=== PATIENT | male | born 1985 | race African-American/Black ===

== ENCOUNTER 2016-05-09 09:38 | Day surgery (SDC) | payer OTHER ==
[~2016-05-09] VITALS: Ht 185.4 cm; Wt 130.5 kg
[~2016-05-09 09:38] MED LIST: HYDROCODONE-APA1 TAB PO; INVOKANA300 MG PO; MEDROL DOSE PACK4 MG PO; TENORMIN25 MG PO; VICTOZA0.6 MG/0.1 SQ; XANAX1 MG PO
[2016-05-09 10:34] VITALS: BP 133/92; Ht 185.4 cm; Wt 130.5 kg
[2016-05-09 10:36] LABS: HEMATOCRIT 44.2 % (42.0-54.0); HEMOGLOBIN 14.5 g/dL (13.5-17.5); MCH 27.4 pg (26.0-34.0); MCHC 32.8 g/dL (31.0-37.0); MCV 83.4 fL (80.0-100.0); MEAN PLATELET VOLUME 9.6 fL (7.4-10.4); RBC 5.3 10x6/uL (4.20-6.10); RDW 13.6 % (11.5-14.5); WBC 5.1 10x3/uL (4.8-10.8)
[2016-05-09 10:49] LABS: CALC OSMOLALITY 277 mosm/kg (275-300); CARBON DIOXIDE 27.4 mmol/L (21.0-32.0); CHLORIDE - SERUM 101 mmol/L (98-107); CREATININE - SERUM 0.8 mg/dL (0.6-1.3); GLUCOSE 167 mg/dL (74-106); POTASSIUM - SERUM 4.3 mmol/L (3.5-5.1); SODIUM 138 mmol/L (136-145); UREA NITROGEN 7 mg/dL (7-18); eGFR NON AFRICAN AMERICAN > 90 mL/min (90-120)
--- NOTE | 2016-05-09 14:37 | NUR ---
1424 DR. LEE LOZANO, GIVES FAMILY REPORT.
--- NOTE | 2016-06-21 10:17 | OP ---
PATIENT NAME: BERNARD LONGORIA MEDICAL RECORD: [id number] :86 LOCATION:D.OPS ADMISSION DATE: SURGEON: OZZY HOWARD MD DATE OF OPERATION: 05/09/2016 PREOPERATIVE DIAGNOSES: 1. Hematochezia. 2. Right lower quadrant abdominal pain. POSTOPERATIVE DIAGNOSES: 1. Hematochezia. 2. Right lower quadrant abdominal pain. 3. Probable bleeding from internal hemorrhoids. PROCEDURE: Total colonoscopy to the cecum. SURGEON: Ozzy Howard MD SEARCH OPTIMIZATION ANALYST: None. BLOOD LOSS: Minimal. ANESTHESIA: IV sedation. COMPLICATIONS: None. Reason for the anesthesia staff being present during the procedure includes anxiety regarding the procedure. ENDOSCOPIC COURSE: The patient was conveyed to endoscopy suite electively on 05/09/2016. IV sedation was induced by the anesthesia staff. The patient was placed in the Robbins position. A digital rectal examination was performed. The prostate was normal. A colonoscope was inserted to the cecum. The prep was marginal. I slowly withdrew the endoscope. I irrigated and aspirated extensively. I used a combination of direct imaging as well as narrow band imaging. I noted no evidence of colitis. No proctitis. No source of bleeding. No polyps. No masses. A retroflexed view was obtained in the rectum. I carefully examined the internal hemorrhoids, which were small. I noted no recent evidence of bleeding. No abrasions on the hemorrhoids. I then unretroflexed the scope and removed it under direct vision. As I told the patient's , I do not have a reason for his right lower quadrant abdominal pain. She states that suppositories have not worked in the past. I would not recommend an operation or banding of his internal hemorrhoids as he has a certain level of anxiety regarding the hematochezia and I think that any procedure on his internal hemorrhoids would temporarily cause an increase in bleeding and I would like to precipitate a number of visits to the Emergency Room. I have offered them a variety of anal suppositories which may or may not decrease the bleeding that he is having. They declined at this time. I will see him on a p.r.n. basis. TRANSINT:[id number] Voice Confirmation ID: [id number] DOCUMENT ID: [id number] OPERATIVE REPORT [id number] BERNARD LONGORIA OZZY CARRANZA MD at 1017 CC: KWESI WATERS MD [id number] DICTATION DATE: 05/09/16 1439 PROJECT ENG: 05/09/16 1454 [facility] 05/09/16 [id number] [place] [address]
--- NOTE | 2016-06-21 10:17 | HP ---
PATIENT: BERNARD LONGORIA MEDICAL RECORD: [id number] ACCOUNT: [id number] LOCATION:OMAR : 86 ADMISSION DATE: 05/09/16 HISTORY AND PHYSICAL EXAMINATION CHIEF COMPLAINT: Abdominal pain in right lower quadrant as well as hematochezia. HISTORY OF PRESENT ILLNESS: The patient has undergone a number of endoscopic procedures. He has undergone a hemorrhoid procedure, cholecystectomy as well as sinus surgery. He has fatty liver disease, non-insulin dependent diabetes mellitus, gastroesophageal reflux on no medicines, and hypertension. SOCIAL HISTORY: Nonsmoker. HOME MEDICATIONS: Xanax and hydrocodone. ALLERGIES: MORPHINE. REVIEW OF SYSTEMS: Negative for CVA or seizures. Negative for renal disease or thyroid disease. PHYSICAL EXAMINATION: GENERAL: The patient does not appear acutely ill. He does not appear chronically ill. VITAL SIGNS: Reviewed. HEAD: External ears appear normal. EYES: Extraocular movements are intact. NECK: Trachea is midline. CHEST: No intercostal retractions. PULMONARY: Nonlabored, no stridor. ABDOMEN: Tenderness in the right lower quadrant with guarding. No peritonitis to percussion. IMPRESSION: 1. Intermittent recurrent hematochezia. 2. Right lower quadrant abdominal pain. PLAN: Colonoscopy. TRANSINT:[id number] Voice Confirmation ID: [id number] DOCUMENT ID: [id number] CARRIE HOWARD MD at 1017 CC: [id number] DICTATION DATE: 05/09/16 1355 SENIOR CONSUMER INSIGHTS CONSULTANT: 05/09/16 1405 [facility] 05/09/16 [place] [address]
== END 2016-05-09 15:25 | disposition home or self-care (01) ==
LOC: D.OPS 09:38
PROVIDERS: Anesthesiology
DX: K92.1 Melena (principal); K64.8 Other hemorrhoids; K76.0 Fatty (change of) liver, not elsewhere classified; E11.9 Type 2 diabetes mellitus without complications; J21.9 Acute bronchiolitis, unspecified; I10 Essential (primary) hypertension; Z79.891 Long term (current) use of opiate analgesic; Z79.899 Other long term (current) drug therapy; Z88.5 Allergy status to narcotic agent

== ENCOUNTER 2016-08-20 11:33 | Emergency (ER) | payer SELFPAY ==
[2016-05-09 10:34] VITALS: BMI 37.9
[2016-08-20 12:31] LABS: BASOPHILS 0.8 % (0-2); EOSINOPHILS 2.9 % (0-7); HEMATOCRIT 43.6 % (42.0-54.0); HEMOGLOBIN 14.2 g/dL (13.5-17.5); LYMPHOCYTES 40.7 % (15-50); MCH 26.2 pg (26.0-34.0); MCHC 32.6 g/dL (31.0-37.0); MCV 80.4 fL (80.0-100.0); MEAN PLATELET VOLUME 9.8 fL (7.4-10.4); NEUTROPHILS 42.6 % (40-80); PLATELET COUNT 313 10x3/uL (130-400); RBC 5.42 10x6/uL (4.20-6.10); RDW 15.6 % (11.5-14.5); WBC 6.3 10x3/uL (4.8-10.8)
[2016-08-20 12:53] LABS: ALBUMIN 3.7 g/dL (3.4-5.0); ALKALINE PHOSPHATASE 75 U/L (46-116); ALT (SGPT) 107 U/L (10-68); CALC OSMOLALITY 280 mosm/kg (275-300); CALCIUM 8.5 mg/dL (8.5-10.1); CHLORIDE - SERUM 103 mmol/L (98-107); CREATININE - SERUM 0.8 mg/dL (0.6-1.3); GLUCOSE 176 mg/dL (74-106); POTASSIUM - SERUM 4.1 mmol/L (3.5-5.1); PROTEIN - SERUM 7.4 g/dL (6.4-8.2); SODIUM 139 mmol/L (136-145); UREA NITROGEN 11 mg/dL (7-18); eGFR NON AFRICAN AMERICAN > 90 mL/min (90-120)
[2016-08-20 13:09] LABS: CHOL - HDL RATIO 2.9 ratio (2.3-4.9); CHOLESTEROL, TOTAL 93 mg/dL (0-200); CKMB 0.9 U/L (0.0-3.6); CREATINE KINASE 191 UL (21-232); HDL CHOLESTEROL 32 mg/dL (32-96); LDL CHOLESTEROL 13 mg/dL (0-100); LDL-HDL RATIO 0.4 ratio (1.5-3.5); TRIGLYCERIDE 240 mg/dL (30-200)
[2016-08-20 13:10] LABS: TROPONIN-I < 0.017 ng/mL (0.000-0.060)
== END 2016-08-20 13:44 | disposition home or self-care (01) ==
LOC: D.ER 11:33
PROVIDERS: Emergency Medicine
DX: R07.9 Chest pain, unspecified (principal); R51 Headache; E11.9 Type 2 diabetes mellitus without complications; Z79.4 Long term (current) use of insulin; I10 Essential (primary) hypertension; K58.9 Irritable bowel syndrome, unspecified; F17.200 Nicotine dependence, unspecified, uncomplicated

== ENCOUNTER 2016-12-03 09:05 | Emergency (ER) | payer SELFPAY ==
[2016-05-09 10:34] VITALS: BMI 37.9
[2016-12-03 09:38] LABS: BASOPHILS 0.5 % (0-2); EOSINOPHILS 1.8 % (0-7); HEMATOCRIT 43.8 % (42.0-54.0); HEMOGLOBIN 14.5 g/dL (13.5-17.5); IMMATURE GRANULOCYTES 0.2 % (0-5); LYMPHOCYTES 44.8 % (15-50); MCH 26.2 pg (26.0-34.0); MCHC 33.1 g/dL (31.0-37.0); MCV 79.2 fL (80.0-100.0); MEAN PLATELET VOLUME 10.3 fL (7.4-10.4); MONOCYTES 9.6 % (2-11); NEUTROPHILS 43.1 % (40-80); PLATELET COUNT 255 10x3/uL (130-400); RBC 5.53 10x6/uL (4.20-6.10); RDW 15.2 % (11.5-14.5); WBC 6.1 10x3/uL (4.8-10.8)
[2016-12-03 09:47] LABS: APTT 25.3 SECONDS (22.8-39.4); INR 1.04 (0.85-1.17); PROTIME 13.5 SECONDS (11.6-15.0)
[2016-12-03 09:51] LABS: ALBUMIN 4.2 g/dL (3.4-5.0); ALKALINE PHOSPHATASE 70 U/L (46-116); ALT (SGPT) 131 U/L (10-68); BILIRUBIN - TOTAL 0.46 mg/dL (0.2-1.3); CALC OSMOLALITY 278 mosm/kg (275-300); CALCIUM 8.8 mg/dL (8.5-10.1); CARBON DIOXIDE 28.1 mmol/L (21.0-32.0); CHLORIDE - SERUM 103 mmol/L (98-107); CREATININE - SERUM 0.9 mg/dL (0.6-1.3); GLUCOSE 181 mg/dL (74-106); POTASSIUM - SERUM 4.4 mmol/L (3.5-5.1); SODIUM 137 mmol/L (136-145); UREA NITROGEN 12 mg/dL (7-18); eGFR NON AFRICAN AMERICAN > 90 mL/min (90-120)
[2016-12-03 09:55] LABS: CREATINE KINASE 170 UL (21-232); MAGNESIUM - SERUM 2.2 mg/dL (1.8-2.4); TROPONIN-I < 0.017 ng/mL (0.000-0.060)
== END 2016-12-03 11:12 | disposition home or self-care (01) ==
LOC: D.ER 09:05
PROVIDERS: Emergency Medicine
DX: I10 Essential (primary) hypertension (principal); E11.9 Type 2 diabetes mellitus without complications; R07.9 Chest pain, unspecified; R51 Headache; R00.2 Palpitations

== ENCOUNTER 2017-06-07 11:56 | Emergency (ER) | payer BC ==
[2016-05-09 10:34] VITALS: BMI 37.9
[2017-06-07 13:03] LABS: BASOPHILS 0.4 % (0-2); EOSINOPHILS 1.8 % (0-7); HEMATOCRIT 45.9 % (42.0-54.0); IMMATURE GRANULOCYTES 0.2 % (0-5); LYMPHOCYTES 44.1 % (15-50); MCH 26.6 pg (26.0-34.0); MCHC 32.7 g/dL (31.0-37.0); MCV 81.5 fL (80.0-100.0); MEAN PLATELET VOLUME 9.6 fL (7.4-10.4); MONOCYTES 11.3 % (2-11); NEUTROPHILS 42.2 % (40-80); PLATELET COUNT 266 10x3/uL (130-400); RBC 5.63 10x6/uL (4.20-6.10); RDW 15.3 % (11.5-14.5); WBC 5.1 10x3/uL (4.8-10.8)
[2017-06-07 13:15] LABS: INR 1.03 (0.85-1.17); PROTIME 13.1 SECONDS (11.6-15.0)
[2017-06-07 13:17] LABS: ALKALINE PHOSPHATASE 63 U/L (46-116); ALT (SGPT) 127 U/L (10-68); BILIRUBIN - TOTAL 0.71 mg/dL (0.2-1.3); CALC OSMOLALITY 275 mosm/kg (275-300); CALCIUM 8.7 mg/dL (8.5-10.1); CARBON DIOXIDE 24.6 mmol/L (21.0-32.0); CHLORIDE - SERUM 104 mmol/L (98-107); CREATININE - SERUM 0.8 mg/dL (0.6-1.3); D-DIMER-QUANTITATIVE < 0.27 ug/mLFEU (0.20-0.54); GLUCOSE 155 mg/dL (74-106); POTASSIUM - SERUM 4.4 mmol/L (3.5-5.1); PROTEIN - SERUM 7.5 g/dL (6.4-8.2); SODIUM 137 mmol/L (136-145); UREA NITROGEN 9 mg/dL (7-18); eGFR NON AFRICAN AMERICAN > 90 mL/min (90-120)
[2017-06-07 13:18] LABS: CHOL - HDL RATIO 2.5 ratio (2.3-4.9); CHOLESTEROL, TOTAL 93 mg/dL (0-200); CKMB 1.1 U/L (0.0-3.6); CREATINE KINASE 204 UL (21-232); HDL CHOLESTEROL 38 mg/dL (32-96); LDL CHOLESTEROL 44 mg/dL (0-100); LDL-HDL RATIO 1.2 ratio (1.5-3.5); TRIGLYCERIDE 55 mg/dL (30-200)
[2017-06-07 13:19] LABS: TROPONIN-I < 0.017 ng/mL (0.000-0.060)
== END 2017-06-07 17:19 | disposition home or self-care (01) ==
LOC: D.ER 11:56
PROVIDERS: Family Medicine; Nurse Practitioner Family
DX: J11.1 Influenza due to unidentified influenza virus with other respiratory manifestations (principal); I10 Essential (primary) hypertension; E11.9 Type 2 diabetes mellitus without complications; R50.9 Fever, unspecified; R11.0 Nausea

== ENCOUNTER 2017-10-18 16:33 | Inpatient (IN) | payer BC, MEDICAID ==
[~2017-10-18] VITALS: Ht 185.4 cm; Wt 126.1 kg
--- NOTE | ~2017-10-18 | OP ---
PATIENT NAME: BERNARD LONGORIA MEDICAL RECORD: [id number] :86 LOCATION:D. D.2127 ADMISSION DATE:10/18/17 SURGEON: VELASQUEZ LESTRE MD DATE OF OPERATION: 10/23/2017 SURGEON: Velasquez Lester MD ANESTHESIA: General, Dr. Guillen. OPERATION PERFORMED: 1. Mediastinoscopy. 2. Left lower lobe bronchioalveolar lavage for aerobic, anaerobic, TB and fungal cultures. 3. Right upper lobe bronchioalveolar lavage for cytology. PREOPERATIVE DIAGNOSIS: Mediastinal adenopathy. POSTOPERATIVE DIAGNOSIS: Mediastinal adenopathy. INDICATION FOR OPERATION: Mediastinal adenopathy. FINDINGS OF THE OPERATION: On mediastinoscopy, we were unable to find the mediastinal mass or a biopsy safely. The bronchoscopy demonstrated a normal tracheobronchial tree. Cytology and cultures were obtained. ESTIMATED BLOOD LOSS: Less than 3 mL. DESCRIPTION OF PROCEDURE: After informed consent, adequate preoperative medication evaluation, the patient was brought to the operating room, placed on the table in the supine position. After induction of general endotracheal anesthesia and application of appropriate monitoring devices, the neck and chest were prepped and draped in sterile field, utilizing Betadine scrub, alcohol, and Betadine solution. Betadine-impregnated drape was also used. A transverse incision 2-1/2 cm were made above the sternal notch and dissection carried down the fascia. Hemostasis maintained with electrocautery. The pretracheal fascia was entered inferior to the thyroid. Utilizing the mediastinoscope, the mediastinum was examined and the lymph nodes seen on CT scan was not visible. This could not safely continue dissection on the right side of the trachea. There were large venous structures present. The scope was then slowly withdrawn, irrigated. The instrument count and sponge count were correct times 2. Neck was closed in layers utilizing 3-0 Vicryl on the platysma, 5-0 subcuticular Monocryl on the skin. Sterile dressing was applied. The patient then underwent flexible fiberoptic bronchoscopy. There was a normal tracheobronchial tree. Bronchioalveolar lavage was performed in the left lower lobe and cultures sent for aerobe, anaerobe, TB and fungus. Attention was then turned towards the right upper lobe and BAL was performed and the specimen sent to pathology for cytologic examination. The scope was withdrawn. The patient tolerated the procedure well and was transferred to the postanesthesia recovery room in satisfactory condition. TRANSINT:[id number] Voice Confirmation ID: [id number] DOCUMENT ID: [id number] OPERATIVE REPORT [id number] BERNARD LONGORIA EDWARD MD at 1309 CC: [id number] DICTATION DATE: 10/23/171750 DAIRY TESTER: 10/23/171927 [facility] 10/25/17 [address] [id number] [place] [id number]
--- NOTE | ~2017-10-18 | CN ---
PATIENT NAME:BERNARD COONEY MEDICAL RECORD: [id number] : 87 LOCATION:D. D.2127 ADMIT DATE: 10/18/17 ACCOUNT: [id number] CONSULTING PHYSICIAN: CAYLA YE MD REFERRING PHYSICIAN: JAYSON MEREDITH MD DATE OF CONSULTATION: 10/19/2017 CONSULT REQUESTING PHYSICIAN: Jayson Meredith MD REASON FOR CONSULTATION: Pneumonia, mediastinal lymphadenopathy. HISTORY OF PRESENT ILLNESS: Mr. Cooney is a 31-year-old gentleman with a history of asthma and obstructive sleep apnea. The patient was complaining of retrosternal chest pain, which is pleuritic in nature, also radiating to the right jaw. He has some shortness of breath. He was feeling feverish, came into the ER, workup showed that he has some infiltrate as well as mediastinal lymphadenopathy and pulmonary nodule. REVIEW OF SYSTEMS: As in history of present illness. PAST MEDICAL HISTORY: 1. Diabetes mellitus. 2. Fatty liver. 3. Anxiety, depression. 4. Asthma. 5. Obstructive sleep apnea. PAST SURGICAL HISTORY: 1. Cholecystectomy. 2. Sinus surgery. ALLERGIES: HE IS ALLERGIC TO MORPHINE. MEDICATIONS: On DiscountIF is reviewed. PERSONAL AND SOCIAL HISTORY: The patient is a nonsmoker, nondrinker. FAMILY HISTORY: His sister has a cancer. PHYSICAL EXAMINATION: GENERAL: The patient is now lying comfortably in bed. He is not in acute distress. VITAL SIGNS: The blood pressure 118/79, pulse is 73, respiration 20, temperature 98.3, SpO2 is 97% on 2 liters nasal cannula. HEENT: Conjunctivae are pink. Sclerae are not icteric. NECK: Supple, no JVD. CHEST: There are bilateral crackles. No wheezing. HEART: Rate and rhythm regular, normal sound, no murmur. ABDOMEN: Soft, bowel sounds present. No hepatosplenomegaly. RECTAL: Deferred. EXTREMITIES: No cyanosis, no clubbing, no pedal edema. SKIN: Warm, normal turgor. No rash. CENTRAL NERVOUS SYSTEM: The patient is awake and alert. There is no obvious ryan nerve abnormality. The gait was not tested. CONSULT REPORT [id number] BERNARD COONEY IMAGING: CT scan of the chest: There did not show any pulmonary embolism, but there is enlarged mediastinal lymph node. There is bilateral interstitial infiltrate in the lingula and right lower lobe. There is also small pulmonary nodules, nearly 5 mm in size. OTHER LABORATORY DATA: CBC: The WBC is 5.6, hemoglobin is 14.8, hematocrit 44.9, the platelet count is 252. Chemistry: Sodium 144, potassium 4.6, BUN is 10, creatinine 0.7. IMPRESSION: 1. Mediastinal lymphadenopathy, rule out lymphoma, rule out sarcoidosis, rule out granulomatous disease, infectious versus noninfectious. 2. Pneumonia, bilateral. 3. Most likely community-acquired pneumonia. 4. Multiple pulmonary nodules. 5. Pleurisy. 6. Obstructive sleep apnea. The patient is on CPAP machine. 7. Asthma exacerbation. 8. Obesity. 9. Diabetes mellitus. RECOMMENDATION: 1. Methylprednisolone IV. 2. Brovana, budesonide nebulizer. 3. Xopenex nebulizer. 4. Singulair 10 mg daily. 5. Check ELDER level. Fungal serology, histoplasma antibody, gold QuantiFERON test, MANNY, and ANCA level. 6. Consult Dr. Lester for mediastinoscopy. Dr. Meredith, thank you for involving me in the care of Mr. Cooney. TRANSINT:[id number] Voice Confirmation ID: [id number] DOCUMENT ID: [id number] CAYLA YE MD at 1110 CC: JAYSON MEREDITH [id number] DICTATION DATE: 10/19/17 172 RETAIL PHARMACY MANAGER: 10/19/17 1804 [facility] 10/25/17 [facility] [address] [place] [address]
[2017-10-18] MEDS ORDERED: KLONOPIN1 MG PO (16:52)
[2017-10-18 17:30] LABS: BASOPHILS 0.2 % (0-2); EOSINOPHILS 0.5 % (0-7); HEMATOCRIT 45.6 % (42.0-54.0); HEMOGLOBIN 15.3 g/dL (13.5-17.5); IMMATURE GRANULOCYTES 0.2 % (0-5); LYMPHOCYTES 12.1 % (15-50); MCHC 33.6 g/dL (31.0-37.0); MCV 83.5 fL (80.0-100.0); MEAN PLATELET VOLUME 10.3 fL (7.4-10.4); MONOCYTES 7.8 % (2-11); NEUTROPHILS 79.2 % (40-80); PLATELET COUNT 254 10x3/uL (130-400); RBC 5.46 10x6/uL (4.20-6.10); RDW 14.8 % (11.5-14.5); WBC 6.3 10x3/uL (4.8-10.8)
[2017-10-18 17:42] LABS: APTT 27.8 SECONDS (22.8-39.4); INR 1.11 (0.85-1.17); PROTIME 13.9 SECONDS (11.6-15.0)
[2017-10-18 17:43] LABS: ALKALINE PHOSPHATASE 71 U/L (46-116); ALT (SGPT) 140 U/L (10-68); BILIRUBIN - TOTAL 1.24 mg/dL (0.2-1.3); CALC OSMOLALITY 281 mosm/kg (275-300); CALCIUM 8.6 mg/dL (8.5-10.1); CARBON DIOXIDE 27.6 mmol/L (21.0-32.0); CHLORIDE - SERUM 105 mmol/L (98-107); GLUCOSE 136 mg/dL (74-106); POTASSIUM - SERUM 4.5 mmol/L (3.5-5.1); PROTEIN - SERUM 7.9 g/dL (6.4-8.2); SODIUM 141 mmol/L (136-145); UREA NITROGEN 10 mg/dL (7-18); eGFR NON AFRICAN AMERICAN > 90 mL/min (90-120)
[2017-10-18 17:54] LABS: CKMB 0.9 U/L (0.0-3.6); CREATINE KINASE 268 UL (21-232); PRO BNP 15 pg/mL (0-125); TROPONIN-I < 0.017 ng/mL (0.000-0.060)
[2017-10-18 21:00] VITALS: BP 114/65
[2017-10-18 22:00] VITALS: BP 107/68
[2017-10-18 22:36] LABS: CKMB 0.6 U/L (0.0-3.6); CREATINE KINASE 203 UL (21-232); TROPONIN-I < 0.017 ng/mL (0.000-0.060)
[2017-10-18 23:30] VITALS: BP 112/68
[2017-10-19] VITALS (9 sets, daily range): BP systolic 105–125; BP diastolic 55–80; BMI 38.7
[2017-10-19 06:36] LABS: BASOPHILS 0 % (0-2); EOSINOPHILS 0 % (0-7); HEMATOCRIT 44.9 % (42.0-54.0); HEMOGLOBIN 14.8 g/dL (13.5-17.5); IMMATURE GRANULOCYTES 0.2 % (0-5); LYMPHOCYTES 15.4 % (15-50); MCH 27.6 pg (26.0-34.0); MCV 83.8 fL (80.0-100.0); MONOCYTES 2.2 % (2-11); NEUTROPHILS 82.2 % (40-80); PLATELET COUNT 252 10x3/uL (130-400); RBC 5.36 10x6/uL (4.20-6.10); RDW 15.1 % (11.5-14.5); WBC 5.6 10x3/uL (4.8-10.8)
[2017-10-19 07:16] LABS: CALC OSMOLALITY 288 mosm/kg (275-300); CALCIUM 8.1 mg/dL (8.5-10.1); CARBON DIOXIDE 24.9 mmol/L (21.0-32.0); CHLORIDE - SERUM 107 mmol/L (98-107); GLUCOSE 161 mg/dL (74-106); POTASSIUM - SERUM 4.6 mmol/L (3.5-5.1); SODIUM 144 mmol/L (136-145); UREA NITROGEN 10 mg/dL (7-18)
[2017-10-19 07:17] LABS: CREATININE - SERUM 0.7 mg/dL (0.6-1.3); eGFR NON AFRICAN AMERICAN > 90 mL/min (90-120)
[2017-10-19] MEDS ORDERED: HYDROCODON-ACE1 EAC7 PO (17:12)
[2017-10-20 00:46] VITALS: BP 113/73
[2017-10-20 05:43] VITALS: BP 109/69
[2017-10-20 08:25] VITALS: BP 142/80
[2017-10-20 11:02] VITALS: BP 134/75
[2017-10-20 15:42] LABS: BASOPHILS 0.1 % (0-2); EOSINOPHILS 0 % (0-7); HEMATOCRIT 47.3 % (42.0-54.0); HEMOGLOBIN 15.7 g/dL (13.5-17.5); IMMATURE GRANULOCYTES 0.1 % (0-5); MCH 27.9 pg (26.0-34.0); MCHC 33.2 g/dL (31.0-37.0); MCV 84.2 fL (80.0-100.0); MEAN PLATELET VOLUME 9.9 fL (7.4-10.4); NEUTROPHILS 74.8 % (40-80); PLATELET COUNT 259 10x3/uL (130-400); RBC 5.62 10x6/uL (4.20-6.10); WBC 9.5 10x3/uL (4.8-10.8)
[2017-10-20 16:01] LABS: ALBUMIN 3.8 g/dL (3.4-5.0); ALKALINE PHOSPHATASE 71 U/L (46-116); ALT (SGPT) 108 U/L (10-68); BILIRUBIN - TOTAL 0.48 mg/dL (0.2-1.3); CALC OSMOLALITY 285 mosm/kg (275-300); CARBON DIOXIDE 26.5 mmol/L (21.0-32.0); CHLORIDE - SERUM 104 mmol/L (98-107); CREATININE - SERUM 0.7 mg/dL (0.6-1.3); GLUCOSE 170 mg/dL (74-106); POTASSIUM - SERUM 4.6 mmol/L (3.5-5.1); PROTEIN - SERUM 7.4 g/dL (6.4-8.2); SODIUM 141 mmol/L (136-145); UREA NITROGEN 14 mg/dL (7-18); eGFR NON AFRICAN AMERICAN > 90 mL/min (90-120)
[2017-10-20 16:13] VITALS: BP 138/72
[2017-10-20 20:00] VITALS: BP 112/66
[2017-10-21] VITALS: BP 128/60
[2017-10-21 04:00] VITALS: BP 115/68
[2017-10-21 06:39] LABS: BASOPHILS 0 % (0-2); EOSINOPHILS 0 % (0-7); HEMATOCRIT 47.1 % (42.0-54.0); HEMOGLOBIN 15.5 g/dL (13.5-17.5); IMMATURE GRANULOCYTES 0.2 % (0-5); LYMPHOCYTES 13.7 % (15-50); MCH 27.5 pg (26.0-34.0); MCHC 32.9 g/dL (31.0-37.0); MCV 83.5 fL (80.0-100.0); MEAN PLATELET VOLUME 10.3 fL (7.4-10.4); MONOCYTES 9.2 % (2-11); NEUTROPHILS 76.9 % (40-80); RBC 5.64 10x6/uL (4.20-6.10); RDW 15.2 % (11.5-14.5); WBC 10.3 10x3/uL (4.8-10.8)
[2017-10-21 06:42] LABS: PLATELET COUNT 313 10x3/uL (130-400)
[2017-10-21 07:14] LABS: ALBUMIN 3.8 g/dL (3.4-5.0); ALKALINE PHOSPHATASE 70 U/L (46-116); ALT (SGPT) 95 U/L (10-68); BILIRUBIN - TOTAL 0.42 mg/dL (0.2-1.3); CALC OSMOLALITY 282 mosm/kg (275-300); CALCIUM 8.7 mg/dL (8.5-10.1); CARBON DIOXIDE 26.2 mmol/L (21.0-32.0); CHLORIDE - SERUM 104 mmol/L (98-107); CREATININE - SERUM 0.8 mg/dL (0.6-1.3); GLUCOSE 163 mg/dL (74-106); PROTEIN - SERUM 7.7 g/dL (6.4-8.2); SODIUM 139 mmol/L (136-145); UREA NITROGEN 14 mg/dL (7-18); eGFR NON AFRICAN AMERICAN > 90 mL/min (90-120)
[2017-10-21 08:00] VITALS: BP 140/75
[2017-10-21 08:45] VITALS: BP 119/68
[2017-10-21 11:12] VITALS: BP 109/70
[2017-10-22 04:00] VITALS: BP 110/70
[2017-10-22 06:40] LABS: BASOPHILS 0.2 % (0-2); EOSINOPHILS 0 % (0-7); HEMATOCRIT 45.8 % (42.0-54.0); HEMOGLOBIN 15.2 g/dL (13.5-17.5); IMMATURE GRANULOCYTES 0.1 % (0-5); LYMPHOCYTES 16.2 % (15-50); MCH 27.9 pg (26.0-34.0); MCHC 33.2 g/dL (31.0-37.0); MONOCYTES 10.2 % (2-11); NEUTROPHILS 73.3 % (40-80); PLATELET COUNT 299 10x3/uL (130-400); RBC 5.45 10x6/uL (4.20-6.10); RDW 15.4 % (11.5-14.5); WBC 9.2 10x3/uL (4.8-10.8)
[2017-10-22 07:15] LABS: ALBUMIN 3.6 g/dL (3.4-5.0); ALKALINE PHOSPHATASE 74 U/L (46-116); ALT (SGPT) 91 U/L (10-68); BILIRUBIN - TOTAL 0.44 mg/dL (0.2-1.3); CALC OSMOLALITY 280 mosm/kg (275-300); CALCIUM 8.2 mg/dL (8.5-10.1); CARBON DIOXIDE 27.3 mmol/L (21.0-32.0); CHLORIDE - SERUM 104 mmol/L (98-107); CREATININE - SERUM 0.6 mg/dL (0.6-1.3); GLUCOSE 154 mg/dL (74-106); POTASSIUM - SERUM 4.1 mmol/L (3.5-5.1); SODIUM 140 mmol/L (136-145); UREA NITROGEN 11 mg/dL (7-18); eGFR NON AFRICAN AMERICAN > 90 mL/min (90-120)
[2017-10-22 08:10] VITALS: BP 119/77
[2017-10-22 11:31] VITALS: BP 122/88
[2017-10-22 12:11] LABS: ANA REFLEX - DIRECT Negative (Negative)
[2017-10-22 15:57] VITALS: BP 115/72
[2017-10-22 16:30] LABS: BASOPHILS 0.1 % (0-2); EOSINOPHILS 0 % (0-7); HEMATOCRIT 48.6 % (42.0-54.0); HEMOGLOBIN 16.2 g/dL (13.5-17.5); IMMATURE GRANULOCYTES 0.3 % (0-5); LYMPHOCYTES 21.2 % (15-50); MCH 27.9 pg (26.0-34.0); MCHC 33.3 g/dL (31.0-37.0); MCV 83.6 fL (80.0-100.0); MEAN PLATELET VOLUME 10.1 fL (7.4-10.4); MONOCYTES 10.9 % (2-11); NEUTROPHILS 67.5 % (40-80); PLATELET COUNT 327 10x3/uL (130-400); RBC 5.81 10x6/uL (4.20-6.10); WBC 10.5 10x3/uL (4.8-10.8)
[2017-10-22 16:44] LABS: APTT 25.3 SECONDS (22.8-39.4); INR 1.13 (0.85-1.17); PROTIME 14.1 SECONDS (11.6-15.0)
[2017-10-22 18:19] LABS: APPEARANCE CLEAR (CLEAR); COLOR YELLOW (YELLOW); SPECIFIC GRAVITY 1.015 (1.005-1.020)
[2017-10-22 18:20] LABS: BILIRUBIN NEGATIVE (NEGATIVE); GLUCOSE 1000 mg/dL (NEGATIVE); KETONE NEGATIVE (NEGATIVE); NITRITE NEGATIVE (NEGATIVE); PROTEIN NEGATIVE (NEGATIVE); UROBILINOGEN NORMAL (NORMAL)
[2017-10-22 20:00] VITALS: BP 140/76
[2017-10-22 21:11] LABS: ALBUMIN 3.9 g/dL (3.4-5.0); ALKALINE PHOSPHATASE 71 U/L (46-116); ALT (SGPT) 112 U/L (10-68); BILIRUBIN - TOTAL 0.54 mg/dL (0.2-1.3); CALC OSMOLALITY 278 mosm/kg (275-300); CALCIUM 8.8 mg/dL (8.5-10.1); CARBON DIOXIDE 29.1 mmol/L (21.0-32.0); CHLORIDE - SERUM 102 mmol/L (98-107); CREATININE - SERUM 0.7 mg/dL (0.6-1.3); GLUCOSE 122 mg/dL (74-106); POTASSIUM - SERUM 3.7 mmol/L (3.5-5.1); PROTEIN - SERUM 7.6 g/dL (6.4-8.2); SODIUM 140 mmol/L (136-145); UREA NITROGEN 11 mg/dL (7-18); eGFR NON AFRICAN AMERICAN > 90 mL/min (90-120)
[2017-10-23 03:10] LABS: ANGIOTENSIN CONVERTING ENZYME 43 U/L (14-82)
[2017-10-23 04:00] VITALS: BP 105/57
[2017-10-23 05:34] LABS: BASOPHILS 0.1 % (0-2); EOSINOPHILS 0.2 % (0-7); HEMATOCRIT 47.1 % (42.0-54.0); HEMOGLOBIN 15.7 g/dL (13.5-17.5); IMMATURE GRANULOCYTES 0.3 % (0-5); LYMPHOCYTES 30.9 % (15-50); MCH 27.8 pg (26.0-34.0); MCHC 33.3 g/dL (31.0-37.0); MCV 83.4 fL (80.0-100.0); MEAN PLATELET VOLUME 9.7 fL (7.4-10.4); MONOCYTES 12.8 % (2-11); NEUTROPHILS 55.7 % (40-80); PLATELET COUNT 293 10x3/uL (130-400); RBC 5.65 10x6/uL (4.20-6.10); RDW 14.7 % (11.5-14.5); WBC 11.4 10x3/uL (4.8-10.8)
[2017-10-23 06:21] LABS: ALBUMIN 3.6 g/dL (3.4-5.0); ALKALINE PHOSPHATASE 63 U/L (46-116); ALT (SGPT) 121 U/L (10-68); CALC OSMOLALITY 278 mosm/kg (275-300); CALCIUM 8.5 mg/dL (8.5-10.1); CARBON DIOXIDE 29.9 mmol/L (21.0-32.0); CHLORIDE - SERUM 102 mmol/L (98-107); CREATININE - SERUM 0.6 mg/dL (0.6-1.3); GLUCOSE 114 mg/dL (74-106); POTASSIUM - SERUM 3.9 mmol/L (3.5-5.1); PROTEIN - SERUM 7.1 g/dL (6.4-8.2); SODIUM 139 mmol/L (136-145); UREA NITROGEN 12 mg/dL (7-18); eGFR NON AFRICAN AMERICAN > 90 mL/min (90-120)
[2017-10-23 08:32] VITALS: BP 107/66
[2017-10-23 11:31] VITALS: BP 112/69
[2017-10-23 13:53] VITALS: Ht 185.4 cm; Wt 126.1 kg
[2017-10-23 19:19] VITALS: BP 149/91
[2017-10-23 20:45] VITALS: BP 125/77
[2017-10-24 01:02] VITALS: BP 124/73
[2017-10-24 06:01] LABS: BASOPHILS 0.2 % (0-2); EOSINOPHILS 0.1 % (0-7); HEMATOCRIT 45.7 % (42.0-54.0); HEMOGLOBIN 15.3 g/dL (13.5-17.5); IMMATURE GRANULOCYTES 0.3 % (0-5); MCH 27.8 pg (26.0-34.0); MCHC 33.5 g/dL (31.0-37.0); MCV 83.1 fL (80.0-100.0); MEAN PLATELET VOLUME 9.9 fL (7.4-10.4); MONOCYTES 7.7 % (2-11); NEUTROPHILS 74.7 % (40-80); PLATELET COUNT 315 10x3/uL (130-400); RDW 14.7 % (11.5-14.5); WBC 10.8 10x3/uL (4.8-10.8)
[2017-10-24 06:12] VITALS: BP 123/67
[2017-10-24 06:24] LABS: ALBUMIN 3.4 g/dL (3.4-5.0); ALKALINE PHOSPHATASE 61 U/L (46-116); ALT (SGPT) 309 U/L (10-68); BILIRUBIN - TOTAL 0.78 mg/dL (0.2-1.3); CALC OSMOLALITY 282 mosm/kg (275-300); CALCIUM 8.4 mg/dL (8.5-10.1); CARBON DIOXIDE 28.3 mmol/L (21.0-32.0); CHLORIDE - SERUM 102 mmol/L (98-107); CREATININE - SERUM 0.8 mg/dL (0.6-1.3); GLUCOSE 217 mg/dL (74-106); POTASSIUM - SERUM 4.5 mmol/L (3.5-5.1); PROTEIN - SERUM 6.9 g/dL (6.4-8.2); SODIUM 138 mmol/L (136-145); UREA NITROGEN 12 mg/dL (7-18); eGFR NON AFRICAN AMERICAN > 90 mL/min (90-120)
[2017-10-24 08:21] VITALS: BP 123/86
[2017-10-24 11:52] VITALS: BP 133/78
[2017-10-24 15:47] VITALS: BP 114/73
[2017-10-24 20:35] VITALS: BP 129/80
[2017-10-25 01:41] VITALS: BP 109/65
[2017-10-25 04:00] VITALS: BP 116/68
[2017-10-25 06:32] LABS: BASOPHILS 0.2 % (0-2); EOSINOPHILS 1.4 % (0-7); HEMATOCRIT 45.1 % (42.0-54.0); HEMOGLOBIN 14.7 g/dL (13.5-17.5); IMMATURE GRANULOCYTES 0.4 % (0-5); MCH 27.5 pg (26.0-34.0); MCHC 32.6 g/dL (31.0-37.0); MCV 84.3 fL (80.0-100.0); MEAN PLATELET VOLUME 9.6 fL (7.4-10.4); MONOCYTES 9.8 % (2-11); NEUTROPHILS 55.2 % (40-80); PLATELET COUNT 295 10x3/uL (130-400); RBC 5.35 10x6/uL (4.20-6.10); WBC 12.9 10x3/uL (4.8-10.8)
[2017-10-25 06:51] LABS: ALBUMIN 3.4 g/dL (3.4-5.0); ALKALINE PHOSPHATASE 66 U/L (46-116); ALT (SGPT) 241 U/L (10-68); BILIRUBIN - TOTAL 0.51 mg/dL (0.2-1.3); CALCIUM 8.5 mg/dL (8.5-10.1); CARBON DIOXIDE 33.1 mmol/L (21.0-32.0); CHLORIDE - SERUM 103 mmol/L (98-107); CREATININE - SERUM 0.7 mg/dL (0.6-1.3); POTASSIUM - SERUM 3.9 mmol/L (3.5-5.1); PROTEIN - SERUM 6.4 g/dL (6.4-8.2); SODIUM 142 mmol/L (136-145); UREA NITROGEN 14 mg/dL (7-18); eGFR NON AFRICAN AMERICAN > 90 mL/min (90-120)
[2017-10-25 06:53] LABS: CALC OSMOLALITY 285 mosm/kg (275-300); GLUCOSE 141 mg/dL (74-106)
[2017-10-25 09:22] VITALS: BP 106/61
[2017-10-25] MEDS ORDERED: ZITHROMAX250 MG PO (12:43)
[2017-10-25] MEDS ORDERED: TESSALON PERLE100 MG PO (12:43)
[2017-10-25] MEDS ORDERED: OMNICEF300 MG PO (12:43)
[2017-10-25] MEDS ORDERED: FLORAJEN3 CAPS460 MG PO (12:44)
[2017-10-25] MEDS ORDERED: PULMICORT0.5 MG/21 UPD (12:44)
[2017-10-25] MEDS ORDERED: SINGULAIR10 MG PO (12:44)
[2017-10-25] MEDS ORDERED: MUCINEX600 MG PO (12:44)
[2017-10-25] MEDS ORDERED: PROTONIX40 MG PO (12:45)
[2017-10-25] MEDS ORDERED: BROVANA15 MCG/2 M INH (12:46)
[2017-10-25] MEDS ORDERED: XOPENEX 1.1.25 MG/3 UPD (12:46)
[2017-10-25 15:43] VITALS: BP 92/73
[2017-10-25 16:14] LABS: FUNGAL - ASP FLAVUS Negative (Neg:<1:1); FUNGAL - ASP NIGER Negative (Neg:<1:1); FUNGAL - ASPER FUMIGATUS Negative (Neg:<1:1)
[2017-10-26 12:16] LABS: FUNGUS STAIN Final report (())
[2017-10-26 15:21] LABS: AFB SPECIMEN PROCESSING Concentration (())
[2017-10-29 16:12] LABS: ANCA - ANTIMYELOPEROXIDASE <9.0 U/mL (0.0-9.0); ANCA - ANTIPROTEINASE 3 <3.5 U/mL (0.0-3.5); ANCA - ATYPICAL <1:20 titer (Neg:<1:20); ANCA - CYTOPLASMIC <1:20 titer (Neg:<1:20); ANCA - PERINUCLEAR <1:20 titer (Neg:<1:20)
[2017-11-22 20:09] LABS: FUNGUS MYCOLOGY CULTURE Final report (())
[2017-12-20 15:25] LABS: ACID FAST CULTURE Negative (()); ACID FAST SMEAR Negative (())
== END 2017-10-25 15:51 | disposition home or self-care (01) | DRG 802 ==
LOC: D.ER 16:33 → D.M2 22:28 → D.EDHOLD 22:28 → D.M2 10-19 13:55
PROVIDERS: Family Medicine; Internal Medicine Cardiovascular Disease; Internal Medicine Pulmonary Disease; Thoracic Surgery (Cardiothoracic Vascular Surgery)
PROC: 0B9C8ZX Drainage of Right Upper Lung Lobe, Via Natural or Artificial Opening Endoscopic, Diagnostic (ICD-10-PCS; 2017-10-23)
PROC: 0WJC4ZZ Inspection of Mediastinum, Percutaneous Endoscopic Approach (ICD-10-PCS; principal; 2017-10-23 14:30)
PROC: 0B9J8ZX Drainage of Left Lower Lung Lobe, Via Natural or Artificial Opening Endoscopic, Diagnostic (ICD-10-PCS; 2017-10-23 14:30)
DX: R59.0 Localized enlarged lymph nodes (principal); J18.9 Pneumonia, unspecified organism; J45.901 Unspecified asthma with (acute) exacerbation; E11.9 Type 2 diabetes mellitus without complications; Z79.4 Long term (current) use of insulin; F41.8 Other specified anxiety disorders; G47.33 Obstructive sleep apnea (adult) (pediatric); E66.9 Obesity, unspecified; R91.8 Other nonspecific abnormal finding of lung field; I10 Essential (primary) hypertension; R79.89 Other specified abnormal findings of blood chemistry

== ENCOUNTER 2017-12-27 22:48 | Emergency (ER) | payer BC, MEDICAID ==
[~2017-12-27] VITALS: Ht 185.4 cm; Wt 130.5 kg
[~2017-12-27 22:48] MED LIST changes: +BROVANA15 MCG/2 M INH; +FLORAJEN3 CAPS460 MG PO; +HYDROCODON-ACE1 EAC7 PO; +KLONOPIN1 MG PO; +MUCINEX600 MG PO; +OMNICEF300 MG PO; +PROTONIX40 MG PO; +PULMICORT0.5 MG/21 UPD; +SINGULAIR10 MG PO; +TESSALON PERLE100 MG PO; +XOPENEX 1.1.25 MG/3 UPD; +ZITHROMAX250 MG PO
[2017-12-27 23:00] VITALS: Ht 185.4 cm; Wt 130.5 kg
[2017-12-27 23:29] LABS: HEMATOCRIT 42.7 % (42.0-54.0); HEMOGLOBIN 14.3 g/dL (13.5-17.5); LYMPHOCYTES 41.2 % (15-50); MCH 27.7 pg (26.0-34.0); MCHC 33.5 g/dL (31.0-37.0); MCV 82.6 fL (80.0-100.0); MEAN PLATELET VOLUME 9.3 fL (7.4-10.4); NEUTROPHILS 43.6 % (40-80); PLATELET COUNT 276 10x3/uL (130-400); RBC 5.17 10x6/uL (4.20-6.10); RDW 14.6 % (11.5-14.5)
[2017-12-28] MEDS ORDERED: ZPAK PO (00:51)
[2017-12-28] MEDS ORDERED: MEDROL DOSE PACK4 MG PO (00:51)
[2017-12-28] MEDS ORDERED: ROBITUSSIN AC (10 M1 PO (00:51)
[2017-12-28 01:08] VITALS: BP 101/77
== END 2017-12-28 01:08 | disposition home or self-care (01) ==
LOC: D.ER 22:48
PROVIDERS: Family Medicine
DX: J06.9 Acute upper respiratory infection, unspecified (principal); R53.83 Other fatigue; E11.9 Type 2 diabetes mellitus without complications; I10 Essential (primary) hypertension

== ENCOUNTER 2018-01-28 10:49 | Emergency (ER) | payer MEDICAID ==
[~2018-01-28] VITALS: Ht 185.4 cm; Wt 131.4 kg
[~2018-01-28 10:49] MED LIST changes: +ROBITUSSIN AC (10 M1 PO; +ZPAK PO
[2018-01-28 10:56] VITALS: Ht 185.4 cm; Wt 131.4 kg
[2018-01-28 11:50] LABS: BASOPHILS 0.4 % (0-2); EOSINOPHILS 1.6 % (0-7); HEMATOCRIT 46.8 % (42.0-54.0); HEMOGLOBIN 15.9 g/dL (13.5-17.5); IMMATURE GRANULOCYTES 0.2 % (0-5); LYMPHOCYTES 36.1 % (15-50); MCH 28.3 pg (26.0-34.0); MCV 83.4 fL (80.0-100.0); MEAN PLATELET VOLUME 9.8 fL (7.4-10.4); MONOCYTES 13.3 % (2-11); NEUTROPHILS 48.4 % (40-80); PLATELET COUNT 262 10x3/uL (130-400); RBC 5.61 10x6/uL (4.20-6.10); RDW 14.8 % (11.5-14.5); WBC 5.6 10x3/uL (4.8-10.8)
[2018-01-28 12:13] LABS: ALBUMIN 4.1 g/dL (3.4-5.0); ALKALINE PHOSPHATASE 60 U/L (46-116); ALT (SGPT) 118 U/L (10-68); BILIRUBIN - TOTAL 1.04 mg/dL (0.2-1.3); CALC OSMOLALITY 280 mosm/kg (275-300); CALCIUM 9.6 mg/dL (8.5-10.1); CARBON DIOXIDE 24.4 mmol/L (21.0-32.0); CHLORIDE - SERUM 103 mmol/L (98-107); CREATININE - SERUM 0.8 mg/dL (0.6-1.3); GLUCOSE 131 mg/dL (74-106); POTASSIUM - SERUM 4.3 mmol/L (3.5-5.1); SODIUM 140 mmol/L (136-145); UREA NITROGEN 13 mg/dL (7-18); eGFR NON AFRICAN AMERICAN > 90 mL/min (90-120)
[2018-01-28 12:20] LABS: CKMB 1.2 U/L (0.0-3.6); CREATINE KINASE 190 UL (21-232); TROPONIN-I < 0.017 ng/mL (0.000-0.060)
[2018-01-28] MEDS ORDERED: NAPROSYN500 MG PO (15:57)
[2018-01-28 16:29] VITALS: BP 116/77
== END 2018-01-28 16:23 | disposition home or self-care (01) ==
LOC: D.ER 10:49
PROVIDERS: Family Medicine
DX: M94.0 Chondrocostal junction syndrome [Tietze] (principal); R11.0 Nausea; E11.9 Type 2 diabetes mellitus without complications

== ENCOUNTER → 2018-03-06 09:18 | Outpatient (CLI) | payer BC, MEDICAID ==
[2018-01-28 10:56] VITALS: BMI 38.2
[~2018-03-06 09:18] MED LIST changes: +BENADRYL25 MG PO; +NAPROSYN500 MG PO; +PEPCID AC20 MG PO; +PREDNISONE20 MG PO
== END | disposition home or self-care (01) ==
LOC: D.RT 09:18
DX: J45.901 Unspecified asthma with (acute) exacerbation (principal); R59.0 Localized enlarged lymph nodes

== ENCOUNTER → 2018-03-11 08:20 | Outpatient (CLI) | payer MEDICAID, BC ==
[2018-01-28 10:56] VITALS: BMI 38.2
== END | disposition home or self-care (01) ==
LOC: D.CT 03-06 11:00
DX: R59.0 Localized enlarged lymph nodes (principal)

== ENCOUNTER 2018-03-11 08:58 | Emergency (ER) | payer MEDICAID, BC ==
[~2018-03-11] VITALS: Ht 185.4 cm; Wt 122.7 kg
[~2018-03-11 08:58] MED LIST changes: -BENADRYL25 MG PO; -PEPCID AC20 MG PO; -PREDNISONE20 MG PO
[2018-03-11 09:00] VITALS: Ht 185.4 cm; Wt 122.7 kg
[2018-03-11] MEDS ORDERED: PEPCID AC20 MG PO (10:34)
[2018-03-11] MEDS ORDERED: BENADRYL25 MG PO (10:34)
[2018-03-11] MEDS ORDERED: PREDNISONE20 MG PO (10:34)
[2018-03-11 10:36] VITALS: BP 128/64
== END 2018-03-11 10:37 | disposition home or self-care (01) ==
LOC: D.ER 08:58
DX: T50.8X5A Adverse effect of diagnostic agents, initial encounter (principal); Y92.238 Other place in hospital as the place of occurrence of the external cause; H55.09 Other forms of nystagmus; R41.0 Disorientation, unspecified; E11.9 Type 2 diabetes mellitus without complications; I10 Essential (primary) hypertension

== ENCOUNTER 2018-04-08 08:35 | Outpatient (CLI) | payer MEDICAID, BC ==
[~2018-04-08] VITALS: Ht 185.4 cm; Wt 131.8 kg
--- NOTE | ~2018-04-08 | HEMODYNAMI ---
PATIENT:BERNARD LONGORIA MEDICAL RECORD: [id number] : 87 LOCATION:DYOJANA ADMISSION DATE: 04/08/18 Generatedon:04/08/201812:38 Patient name: BERNARD LONGORIA Patient #: [id number] SSN: D OB: 1985 Date of study: 04/08/2018 Page: Of Hemodynamic Procedure Report Patient Data Patient Demographics Procedure consent was obtained First Name: BERNARD Gender: Male Last Name: VON : 1985 Middle Initial: VELASQUEZ Age: 32 year(s) Patient #: [id number] Race: Black Additional ID: [id number] Contact details [address]: [address] [place] [address] State: [place] City: [place] Zip code: [address] Admission Admission Data Admission Date: 04/08/2018 Admission Time: 8:35 Weight (lbs.): 290 Weight (kg.): 131.54 Lab Results Lab Result Date: 04/08/2018 Lab Result Time: 0:00 Biochemistry Name Units Result Min Max BUN mg/dl 10 --(-*--)-- 7 18 Creatinine mg/dl 0.7 --(*---)-- 0.6 1.3 CBC Name Units Result Min Max Hemoglobin g/dl 14.3 --(*---)-- 13.5 17.5 Platelets 10^3/l 270 --(--*-)-- 130 400 Procedure Procedure Types Cath Procedure Diagnostic Procedure LHC LHC w/Coronaries Procedure Description Procedure Date Procedure Date: 04/08/2018 Procedure Start Time: 12:25 Procedure End Time: 12:36 Procedure Staff Name Function Elder Johnson MD Performing Physician Shar Del Cid RT Monitor Mila Flores RN Nurse Ambar Lee RT Scrub Procedure Data Cath Procedure Fluoroscopy Diagnostic fluoroscopy Total fluoroscopy Time: 1.2 time: 1.2 min min Diagnostic fluoroscopy Total fluoroscopy dose: 258 dose: 258 mGy mGy Contrast Material Contrast Material Type Amount (ml) Isovue 300 58 Entry Location Entry Primary Successful Side Size Upsize Upsize Entry Closure Succes sful Closure Location (Fr) 1 (Fr) 2 (Fr) Remarks Device Remarks Femoral Right 5 Fr Exoseal artery Estimated blood loss: 10 ml Diagnostic catheters Device Type Used For End Catheter Placement MULTIPACK Pigtail 5 Fr Procedure catheter MULTIPACK JL 4.0 5Fr Procedure catheter MULTIPACK 3DRC 5Fr Procedure catheter Procedure Complications No complications Procedure Medications Medication Administration Route Dosage Oxygen etCO2 Nasal cannula 2 l/min Lidocaine 2% added to field 20 Heparin Flush Bag added to field 2 bags (1000units/500ml NS) 0.9% NaCl I.V. 100 ml/hr Versed I.V. 2 mg Fentanyl I.V. 100 mcg Lopressor I.V. 5 mg Versed I.V. 2 mg Fentanyl I.V. 100 mcg Versed I.V. 1 mg Fentanyl I.V. 50 mcg Hemodynamics Rest HGB: 14.3 (g/dl) Heart Rate: 93 (bpm) Snapshots Pre Cath Intra NCS Post Cath Vital Signs Time Heart Resp SPO2 etCO2 NIBP (mmHg) Rhythm Pain Sedation Rate (ipm) (%) (mmHg) Status Level (bpm) 12:11:21 92 42 94 14.3 137/81(103) NSR 8 (11) , 10(A) Utterly horrible 12:15:51 87 40 96 0 131/82(101) NSR 8 (11) , 10(A) Utterly horrible 12:20:19 89 37 97 24.1 130/81(105) NSR 8 (11) , 10(A) Utterly horrible 12:24:44 92 25 97 21.1 135/88(103) NSR 8 (11) , 10(A) Utterly horrible 12:29:14 100 17 99 0 141/85(112) NSR 0 (11) , 9(A) No pain 12:33:42 89 15 96 12.8 131/90(105) NSR 0 (11) , 9(A) No pain 12:37:29 83 19 95 0 131/89(104) NSR 0 (11) , 10(A) No pain Medications Time Medication Route Dose Verified Delivered Reason Notes Eff ectiveness by by 12:04:38 Oxygen etCO2 2 Elder Zaragoza used for Nasal l/min Alex Flores RN procedure cannula 12:12:06 Lidocaine 2% added 20ml Elder Friedman for local to vial Alex Johnson MD anesthetic field 12:12:11 Heparin Flush added 2 Elderjose Cruzrey used for Bag to bags Alex Johnson MD procedure (1000units/500ml field NS) 12:12:29 0.9% NaCl I.V. 100 Elder Zaragoza Per ml/hr Alex Flores RN physician 12:23:47 Versed I.V. 2 mg Elder Zaragoza for Alex Flores RN sedation 12:23:54 Fentanyl I.V. 100 Elder Hsuie for mcg Alex Flores RN sedation 12:26:38 Versed I.V. 2 mg Elder Hsuie for Alex Flores RN sedation 12:27:43 Fentanyl I.V. 100 Elder Hsuie for mcg Alex Flores RN sedation 12:29:03 Lopressor I.V. 5 mg Elder Hsuie Per Alex Flores RN physician 12:32:41 Versed I.V. 1 mg Elder Hsuie for Alex Flores RN sedation 12:32:46 Fentanyl I.V. 50 Elder Hsuie for mcg Alex Flores RN sedation Procedure Log Time Note 11:45:29 Shar Del Cid RT(R) sent for patient. Start room use. 11:48:48 Time tracking: Regular hours (M-F 7:00 - 5:00) 11:48:52 Plan of Care:Hemodynamics will remain stable., Cardiac rhythm will remain stable., Comfort level will be maintained., Respiratory function will remain adequate., Patient/ family verbilizes understanding of procedure., Procedure tolerated without complication., Recovers from procedure without complications.. 12:04:38 Oxygen 2 l/min etCO2 Nasal cannula was administered by Mila Flores RN; used for procedure; 12:05:11 Patient received from Pre/Post Procedure Room to CCL 3 Alert and oriented. Tansferred to table in Supine position. 12:05:12 Warm blankets applied, and bruce hugger turned on for patient comfort. 12:05:13 Correct patient and procedure confirmed by team. 12:05:14 Signed procedure consent form obtained from patient. 12:05:15 ECG and BP/O2 sat monitors applied to patient. 12:09:58 Vital chart was started 12:10:27 Baseline sample Acquired. 12:10:30 Rhythm: sinus rhythm 12:10:32 Full Disclosure recording started 12:11:19 H&P Date Dictated: 04/02/2018 Within 30 days and on chart., H&P Addendum completed by physician on day of procedure. (MUST COMPLETE FOR ALL OUTPATIENTS). 12:11:19 Pre-procedure instructions explained to patient. 12:11:20 Pre-op teaching completed and patient verbalized understanding. 12:11:22 Family in patients room. 12:11:24 Patient NPO since Midnight. 12:11:25 Is the patient allergic to Iodine/contrast media? No. 12:11:28 Is patient on blood thinner?No 12:11:30 Patient diabetic? Yes. 12:11:31 If diabetic: On Metformin? No 12:11:34 Previous problem with sedation/anesthesia? No ? 12:11:34 Snore? Yes 12:11:36 Sleep apnea? Yes 12:11:37 Deviated septum? No 12:11:37 Opens mouth fully? Yes 12:11:38 Sticks out tongue? Yes 12:11:47 Airway obstruction? No ? 12:11:49 Dentures? No ? 12:11:52 Pre procedure: right dorsailis pedis pulse 1+ Palpable, but thready & weak; easily obliterated 12:12:06 Lidocaine 2% 20ml vial added to field was administered by Elder Johnson MD; for local anesthetic; 12:12:11 Heparin Flush Bag (1000units/500ml NS) 2 bags added to field was administered by Elder Johnson MD; used for procedure; 12:12:29 0.9% NaCl 100 ml/hr I.V. was administered by Mila Flores RN; Per physician; 12:12:31 Pt opted for femoral approach. 12:14:07 Patient pain scale 8/10 Physician notified.. 12:14:10 IV patent on arrival in left forearm with 0.9% NaCl at [facility]. 12:14:12 Lab results completed and on chart. 12:14:17 Right groin area was prepped with chlora-prep and draped in sterile fashion 12:14:18 Alarms reviewed by R. N. 12:14:18 Sharps counted by scrub and verified by R.N. 12:14:23 Use device set Femoral Dx 12:14:25 Tegaderm 4 x 4 (1626W) opened to sterile field. 12:14:26 ACIST Manifold (31328) opened to sterile field. 12:14:27 ACIST Hand Control (71743) opened to sterile field. 12:14:28 ACIST Syringe (57274) opened to sterile field. 12:14:29 Bag Decanter (2002S) opened to sterile field. 12:14:29 Medline Cath Pack ([id number]) opened to sterile field. 12:14:30 DIAGNOSTIC WIRE .035 260cm J wire (781280) opened to sterile field. 12:14:31 DIAGNOSTIC Multipack 5Fr catheter set (PF8039) opened to sterile field. 12:14:32 SHEATH 5FR [place] (QFK265) opened to sterile field. 12:15:47 Patient Weight : 290 lbs 12:16:24 Lab Result : BUN 10 mg/dl 12:16:24 Lab Result : Hemoglobin 14.3 g/dl 12:16:24 Lab Result : Creatinine 0.7 mg/dl 12:16:24 Lab Result : Platelets 270 10^3/l 12:16:30 Physician paged 12:23:23 --------ALL STOP TIME OUT------ 12:23:23 Final Timeout: patient, procedure, and site verified with staff and physician. All members of the team are in agreement. 12:23:27 Right groin site verified by team. 12:23:30 Physical assessment completed. ASA score P 2 - A patient with mild systemic disease as per Elder Johnson MD. 12:23:34 Sedation plan: IV Moderate Sedation Medication:Versed, Fentanyl 12:23:42 Zero performed for pressure channel P1 12:23:47 Versed 2 mg I.V. was administered by Mila Flores RN; for sedation; 12:23:50 Zero performed for pressure channel P1 12:23:54 Fentanyl 100 mcg I.V. was administered by Mila Flores RN; for sedation; 12:25:33 Procedure started. 12:25:37 Local anesthetic to right femoral artery with Lidocaine 2% by Elder Johnson MD.INITIAL ACCESS ONLY 12::38 Versed 2 mg I.V. was administered by Mila Flores RN; for sedation; 12:27:24 A 5 Fr sheath was inserted into the Right Femoral artery 12::42 A MULTIPACK Pigtail 5 Fr catheter was advanced over the wire and used for Procedure. 12::43 Fentanyl 100 mcg I.V. was administered by Mila Flores RN; for sedation; 12::52 LV angiography performed. 12::53 LV gram done using HARKINS 12:28:00 EF : 50 % 12::08 Injector settings: Ml/sec: 10, Volume: 20, 12::24 Catheter removed. 12:: A MULTIPACK JL 4.0 5Fr catheter was advanced over the wire and used for Procedure. 12::49 LCA angiography performed. 12::03 Lopressor 5 mg I.V. was administered by Mila Flores RN; Per physician; 12:: Catheter removed. 12::47 A MULTIPACK 3DRC 5Fr catheter was advanced over the wire and used for Procedure. 12:30:07 RCA angiography performed. 12:30:09 Catheter removed. 12::21 EXOSEAL 5Fr (EX500) opened to sterile field. 12::31 Sheath removed intact; hemostasis achieved with Exoseal to the Right Femoral artery. 12:30:33 Procedure ended.(Physican Out) 12::41 Versed 1 mg I.V. was administered by Mila Flores RN; for sedation; 12::46 Fentanyl 50 mcg I.V. was administered by Mila Flores RN; for sedation; 12:34:18 Fluoroscopy time 01.20 minutes. 12:34:50 Fluoroscopy dose: 258 mGy 12:34:50 Flurop Dose total: 258 12:35:02 Contrast amount:Isovue 300 58ml. 12:35:03 Sharps counted by scrub and verified by R.N. 12:35:04 Insertion/operative site no bleeding no hematoma. 12:35:07 Post-op/insertion site Right Femoral artery dressed using a 4 x 4 and Tegaderm. 12:35:09 Post Procedure Pulses reassessed and unchanged 12:35:11 Post-procedure physical assessment completed. ASA score P 2 - A patient with mild systemic disease as per Elder Johnson MD. 12:35:14 Post procedure rhythm: unchanged. 12:35:16 Estimated blood loss: 10 ml 12:35:17 Post procedure instruction explained to patient.Patient verbalizes understanding. 12:35:18 Patient needs reinforcement of post procedure teaching. 12:35:23 Procedure Complication : No complications 12:36:14 Procedure and supply charges have been captured, reviewed, submitted and are correct. 12:36:15 Vital chart was stopped 12:36:17 See physician's report for complete and final results. 12:36:21 Report given to Pre/Post Procedure Room. 12:36:25 Patient transfered to Pre/Post Procedure Room with Stretcher. 12:36:27 Procedure ended. 12:36:27 Full Disclosure recording stopped 12:37:51 End room use (Document Last) Device Usage Item Name Manufacture Quantity Catalog Hospital Part Current Minimal L ot# / Number Charge Number Stock Stock Serial# Code Tegaderm 4 3M 1 1626W [id number] 107039 834199 5 x 4 (1626W) ACIST Acist 1 25008 910461 756557 049357 5 Manifold Medical (57175) Systems Inc ACIST Hand Acist 1 54421 187735 634717 997945 5 Control Medical (48158) Systems Inc ACIST Acist 1 64526 474186 737101 203270 20 Syringe Medical (10994) Systems Inc Bag Microtek 1 2001S 088613 84151 918664 5 Decanter Medical Inc. () Medline Medline 1 [id number] 557856 30108 415150 5 Cath Pack ([id number]) DIAGNOSTIC St Benigno 1 257086 301308 985780 203648 30 WIRE .035 260cm J wire (636488) DIAGNOSTIC Cardinal 1 BR8003 495059 29034 622403 30 Multipack Health 5Fr catheter set (OH7342) MULTIPACK Cardinal 1 146836 5 Pigtail 5 Health Fr catheter MULTIPACK Cardinal 1 006031 5 JL 4.0 5Fr Health catheter MULTIPACK Cardinal 1 722868 5 3DRC 5Fr Health catheter EXOSEAL 5Fr Cardinal 1 EX500 730159 672349 639922 10 (EX500) Health SHEATH 5FR Terumo 1 QKV017 849810 996001 330398 5 [place] (ZWM603) Signature Audit [place] Stage Time Signature Unsigned Intra-Procedure 04/08/2018 Shar Del Cid 12:38:17 PM RT(R) Signatures Monitor : Shar Del Cid RT Signature : Date : Time : [address] [place] [address]
--- NOTE | ~2018-04-08 | OP ---
PATIENT NAME: BERNARD LONGORIA MEDICAL RECORD: [id number] :86 LOCATION:D.CAT ADMISSION DATE: SURGEON: PADMINI LUGO MD DATE OF OPERATION: 04/08/2018 DATE OF SERVICE: 04/08/2018 PROCEDURES: 1. Left heart catheterization. 2. Selective coronary angiography. 3. Left ventriculogram. INDICATION: Chest pain compatible with angina. PROCEDURE IN DETAIL: After informed consent was obtained and after a detailed description of the risks, benefits as well as alternative therapies, the patient elected to proceed with angiogram and heart catheterization. The right femoral area was prepped and draped in normal sterile fashion. Right femoral artery was cannulated via modified Seldinger technique with placement of 6-Icelandic sheath. All catheters exchanged through this sheath. FINDINGS: Left ventriculogram was performed in standard 30-degree HARKINS view, reveals good cardiac wall motion throughout all segments. Overall ejection fraction estimated at 60%. SELECTIVE CORONARY ANGIOGRAPHY: Left main, left anterior descending, left circumflex, right coronary artery are smooth-walled vessels. No angiographic evidence of coronary artery disease. OVERALL IMPRESSION: 1. No angiographic evidence of coronary artery disease. 2. Normal left heart pressures. 3. Normal left ventricular systolic function. Chest pain is noncardiac in etiology. No further cardiac workup needs to be ascertained. TRANSINT:[id number] Voice Confirmation ID: [id number] DOCUMENT ID: [id number] PADMINI LUGO MD at 1324 CC: [id number] DICTATION DATE: 04/08/18 1235 FINANCIAL WELLNESS COACH: 04/08/18 1327 DEP CLI 04/08/18 [place] [address]
[~2018-04-08 08:35] MED LIST changes: +BENADRYL25 MG PO; +PEPCID AC20 MG PO; +PREDNISONE20 MG PO
[2018-04-08] MEDS ORDERED: ATIVAN1 MG (09:00)
[2018-04-08 09:18] VITALS: BP 140/86; Ht 185.4 cm; Wt 131.8 kg
[2018-04-08 09:31] LABS: BASOPHILS 0.4 % (0-2); CALC OSMOLALITY 282 mosm/kg (275-300); CALCIUM 8.6 mg/dL (8.5-10.1); CARBON DIOXIDE 26.4 mmol/L (21.0-32.0); CHLORIDE - SERUM 103 mmol/L (98-107); CREATININE - SERUM 0.7 mg/dL (0.6-1.3); EOSINOPHILS 3.3 % (0-7); HEMOGLOBIN 14.3 g/dL (13.5-17.5); IMMATURE GRANULOCYTES 0.2 % (0-5); LYMPHOCYTES 37.4 % (15-50); MCH 28.4 pg (26.0-34.0); MCV 83.5 fL (80.0-100.0); MEAN PLATELET VOLUME 9.9 fL (7.4-10.4); MONOCYTES 14.4 % (2-11); NEUTROPHILS 44.3 % (40-80); PLATELET COUNT 270 10x3/uL (130-400); POTASSIUM - SERUM 4.1 mmol/L (3.5-5.1); RBC 5.03 10x6/uL (4.20-6.10); RDW 14.2 % (11.5-14.5); SODIUM 139 mmol/L (136-145); UREA NITROGEN 10 mg/dL (7-18); WBC 4.9 10x3/uL (4.8-10.8); eGFR NON AFRICAN AMERICAN > 90 mL/min (90-120)
[2018-04-08 09:38] LABS: GLUCOSE 201 mg/dL (74-106)
== END 2018-04-08 15:00 | disposition home or self-care (01) ==
LOC: D.CATH 08:35
PROVIDERS: Internal Medicine Interventional Cardiology
DX: R07.89 Other chest pain (principal); Z01.812 Encounter for preprocedural laboratory examination

== ENCOUNTER 2019-10-14 10:57 | Day surgery (SDC) | payer BC ==
[~2019-10-14] VITALS: Ht 185.4 cm; Wt 133.2 kg
[~2019-10-14 10:57] MED LIST changes: +ATIVAN1 MG
[2019-10-14 11:13] LABS: HEMATOCRIT 51.3 % (42.0-54.0); HEMOGLOBIN 17.2 g/dL (13.5-17.5); MCH 28.5 pg (26.0-34.0); MCHC 33.5 g/dL (31.0-37.0); MCV 85.1 fL (80.0-100.0); MEAN PLATELET VOLUME 9.5 fL (7.4-10.4); RBC 6.03 10x6/uL (4.20-6.10); RDW 14.1 % (11.5-14.5); WBC 6.1 10x3/uL (4.8-10.8)
[2019-10-14 12:35] VITALS: BP 111/69; Ht 185.4 cm; Wt 133.2 kg
--- NOTE | 2019-10-14 15:05 | NUR ---
CALLED AND SPOKE WITH NURSE JANET AT [facility] IN [place] WHERE PATIENT LIVES. ADVISED JANET THAT PATIENT NEEDS TO RESTART ELIQUIS TODAY AND CONTINUE ELIQUIS 5 MG BID, ADVISED THAT DOSE WAS GIVEN TODAY AT 1300.
--- NOTE | 2019-10-14 15:30 | NUR ---
RIGHT HAND PIV DC'D WITH TIP INTACT. DISCHARGE INSTRUCTIONS REVIEWED WITH PATIENT. DISCHARGED HOME VIA WHEELCHAIR TO PRIVATE VEHICLE WITH FAMILY MEMBER
--- NOTE | 2019-10-15 12:27 | HP ---
PATIENT: BERNARD LONGORIA 3RD MEDICAL RECORD: [id number] ACCOUNT: [id number] LOCATION:[facility] : 87 ADMISSION DATE: 10/14/19 PCP: MARIA GUADALUPE WATERS MD HISTORY AND PHYSICAL EXAMINATION HISTORY OF PRESENT ILLNESS: The patient has recurrent hematochezia. He has chronic diarrhea. He has had some melena as well. Lower abdominal pain, gastroesophageal reflux, history of colon polyps. He is to undergo EGD and colonoscopy. No dysphagia. A consent form was signed. PAST MEDICAL AND SURGICAL HISTORY: Sleep apnea on CPAP, noninsulin-dependent diabetes mellitus. SOCIAL HISTORY: Nonsmoker. HOME MEDICINES: Please see the nursing list. ALLERGIES: MORPHINE. PHYSICAL EXAMINATION: GENERAL: The patient does not appear acutely ill. He does not appear chronically ill. VITAL SIGNS: Reviewed. EARS: External ears appear normal. EYES: Extraocular movements are intact. NECK: Trachea is midline. CHEST: No intercostal retractions. PULMONARY: Nonlabored, no stridor. IMPRESSION: 1. Chronic diarrhea. 2. Hematochezia. 3. Melena. 4. Gastroesophageal reflux. 5. History of colon polyps. PLAN: EGD with biopsies. Colonoscopy with biopsies. Random colon and rectal biopsies. Also, stool studies. TRANSINT:[id number] Voice Confirmation ID: [id number] DOCUMENT ID: [id number] 10/15/2019 Edited for code enforcement officer error, dmm. CARRIE HOWARD MD at 1227 CC: ANA ANDRE MD and VELASQUEZ GOULD [id number] DICTATION DATE: 10/14/19 1342 [facility]: 10/14/19 1810 [facility] 10/14/19 [facility] [address] [place] [address]
--- NOTE | 2019-10-15 12:27 | OP ---
PATIENT NAME: BERNARD LONGORIA 3RD MEDICAL RECORD: [id number] :87 LOCATION:D.OPS ADMISSION DATE: SURGEON: OZZY HOWARD MD DATE OF OPERATION: 10/14/2019 PREOPERATIVE DIAGNOSES: 1. Hematochezia. 2. Melena. 3. Lower abdominal pain. 4. History of colon polyps. 5. Gastroesophageal reflux disease. POSTOPERATIVE DIAGNOSES: 1. Hematochezia 2. Melena 3. Lower abdominal pain. 4. History of colon polyps. 5. Gastroesophageal reflux disease. 6. Normal-appearing duodenum, normal appearing stomach, normal-appearing esophagus. 7. Adequate bowel prep. 8. No evidence of colitis or proctitis. 9. Inflamed internal hemorrhoids, likely the source of the patient's hematochezia. PROCEDURES: 1. Esophagogastroduodenoscopy with antral distal esophageal and mid esophageal biopsies. 2. Total colonoscopy to cecum. 3. Random colon and rectal biopsies. 4. Stool cultures as well as stool studies. SURGEON: Ozzy Howard MD DRIVER EXAMINER: None. BLOOD LOSS: Minimal. ANESTHESIA: IV sedation. COMPLICATIONS: None. The risks, possible complications and alternatives to the procedure were explained to the patient. He elects to proceed. The discussion specifically included, but was not limited to, bleeding requiring emergency reoperation, infection, and endoscopic perforation. ENDOSCOPIC COURSE: The patient was conveyed to endoscopy suite electively on 10/14/2019. IV sedation was induced by the anesthesia staff. A bite block was inserted. A gastroscope was inserted into the mouth. It was advanced easily into the hypopharynx. The esophagus was easily intubated as were the stomach and duodenum. Upon withdrawal, retroflexed and angulus views were obtained. Cold endoscopic biopsies were obtained of the antrum. Cold endoscopic biopsies were obtained of the distal esophagus to rule out Patel's esophagus. Mid esophageal biopsies were obtained to rule out eosinophilic esophagitis. OPERATIVE REPORT [id number] BERNARD LONGORIA 3 The endoscope was then withdrawn under direct vision. The patient was turned 180 degrees and placed in the Robbins position. A digital rectal examination was performed. The prostate was symmetric and without nodules. A colonoscope was inserted through the anus. It was easily advanced to the cecum. The prep was adequate. I was unable to intubate the ileum. I slowly withdrew the endoscope. I irrigated and aspirated extensively. No polyps or masses were noted. Cold endoscopic biopsies were obtained in the colon and rectum. These were random biopsies. I dragged the folds. The pullback was greater than 18-minute pullback. A retroflexed view was obtained in the rectum. I then unretroflexed the scope and removed it under direct vision. During this large bowel endoscopy, I utilized not only normal imaging, but also narrow band imaging to visualize structures. I will see the patient in my office in 2-3 weeks. It sounds as though he has undergone endoscopic banding of the internal hemorrhoids sometime in the past. This is a procedure that we could repeat. TRANSINT:[id number] Voice Confirmation ID: [id number] DOCUMENT ID: [id number] OZZY HOWARD MD at 1227 CC: KWESI WTAERS [id number] DICTATION DATE: 10/14/19 1754 [facility] FRYER: 10/15/19 0125 [facility] 10/14/19 [id number] [place] [address]
== END 2019-10-14 15:30 | disposition home or self-care (01) ==
LOC: D.OPS 10:57
PROVIDERS: Anesthesiology; ATTEND Surgery
DX: K92.1 Melena (principal); R10.30 Lower abdominal pain, unspecified; Z86.010 Personal history of colon polyps; K21.9 Gastro-esophageal reflux disease without esophagitis; K52.9 Noninfective gastroenteritis and colitis, unspecified